=== PATIENT | female | born 2000 | race Caucasian/White ===

== ENCOUNTER 2020-05-06 17:23 | Emergency (ER) | payer MEDICAID ==
[~2020-05-06] VITALS: Ht 165.1 cm; Wt 58.0 kg
[2020-05-06 17:47] VITALS: BP 133/85
--- NOTE | 2020-05-06 19:08 | NUR ---
NO ANSWER WHEN CALLED FOR VITALS @[id number].
--- NOTE | 2020-05-06 19:48 | NUR ---
3rd call. no answer.
== END 2020-05-06 19:50 | disposition left against medical advice (07) ==
LOC: ED 19:40
DX: H57.9 Unspecified disorder of eye and adnexa (principal); Z53.21 Procedure and treatment not carried out due to patient leaving prior to being seen by health care provider